=== PATIENT | female | born 1970 | race Caucasian/White ===

== ENCOUNTER 2018-03-30 22:14 | Emergency (ER) | payer BC ==
[~2018-03-30] VITALS: Ht 175.3 cm; Wt 63.5 kg
[2018-03-30] MEDS ORDERED: ONDANSETRON 4 MG TAB.RAPDIS ONE (22:48)
[2018-03-30] MEDS ORDERED: ONDANSETRON 4 MG TAB.RAPDIS SL ONE (23:00)
[2018-03-30] MEDS ORDERED: predniSONE 10 MG TABLET ONE (23:20)
[2018-03-30] MEDS ORDERED: predniSONE 20 MG TABLET PO ONE (23:30)
--- NOTE | 2018-03-30 23:34 | NUR ---
Patient t & r discharged to home in stable condition. Written and verbal after care instructions given. Patient verbalizes understanding of instruction.
[2018-03-30 23:35] VITALS: BP 110/76
== END 2018-03-30 23:37 | disposition home or self-care (01) ==
LOC: ER 22:25
DX: J20.9 Acute bronchitis, unspecified (principal); R11.2 Nausea with vomiting, unspecified; T36.3X5A Adverse effect of macrolides, initial encounter; F41.9 Anxiety disorder, unspecified; Z60.2 Problems related to living alone; Y92.89 Other specified places as the place of occurrence of the external cause
CPT/HCPCS: 71045; 99283; A4606; J7512; Q0162